=== PATIENT | female | born 2000 | race Caucasian/White ===

== ENCOUNTER 2023-10-23 01:41 | Inpatient (IN) | payer MEDICAID, OTHER ==
[~2023-10-23] VITALS: Ht 149.9 cm; Wt 55.9 kg
[2023-10-23 03:03] LABS: ALCOHOL, URINE DRUG SCREEN NEGATIVE (NEGATIVE); AMPHET/METH SCREEN,URINE NEGATIVE (NEGATIVE); BARBITURATE SCREEN, URINE NEGATIVE (NEGATIVE); BENZODIAZEPINES SCREEN,URINE NEGATIVE (NEGATIVE); CANNABINOID SCREEN,URINE POSITIVE (NEGATIVE); COCAINE SCREEN,URINE POSITIVE (NEGATIVE); METHADONE SCREEN, URINE NEGATIVE (NEGATIVE); OPIATE SCREEN,URINE NEGATIVE (NEGATIVE); PHENCYCLIDINE SCREEN,URINE NEGATIVE (NEGATIVE)
[2023-10-23 04:28] LABS: BASOPHILS % (AUTO) 0.5 % (0.0-2.0); EOSINOPHILS % (AUTO) 0.9 % (1.0-6.0); HEMATOCRIT 40.8 % (36-46); LYMPHOCYTES # (AUTO) 1.5 K/uL (1.0-4.8); LYMPHOCYTES % (AUTO) 18.9 % (22.0-44.0); MEAN CORPUSCULAR HEMOGLOBIN 33.2 pg (26.0-34.0); MEAN CORPUSCULAR HGB CONC 34.3 G/dL (31.0-37.0); MEAN CORPUSCULAR VOLUME 97 fL (80-100); MONOCYTES # (AUTO) 0.6 K/uL (0.1-1.0); MONOCYTES % (AUTO) 8.2 % (2.0-9.0); NEUTROPHILS # (AUTO) 5.5 K/uL (1.8-7.7); NEUTROPHILS % (AUTO) 71.5 % (40.0-70.0); PLATELET COUNT (AUTO) 207 K/uL (150-450); RED BLOOD CELL COUNT(AUTO) 4.22 MIL/uL (4.00-5.20); RED CELL DISTRIBUTION WIDTH 13.2 % (11.5-14.5); WHITE BLOOD COUNT (AUTO) 7.7 K/uL (4.5-11.0)
[2023-10-23 04:31] LABS: ANION GAP 13 mmol/L (8-16); CALCIUM, TOTAL 9.4 mg/dL (8.8-10.5); CARBON DIOXIDE 25 mmol/L (22-29); CHLORIDE 101 mmol/L (98-107); CREATININE 0.77 mg/dL (0.60-1.30); GLOMERULAR FILTR. RATE CALC > 60 mL/min (>60); GLUCOSE,RANDOM 107 mg/dL (70-110); POTASSIUM 3.2 mmol/L (3.5-5.1); SODIUM SERUM 139 mmol/L (136-145); UREA NITROGEN, BLOOD 8 mg/dL (7-18)
[2023-10-23 04:34] LABS: ALCOHOL, BLOOD (SERUM) < 3 mg/dL (0-10)
[2023-10-23] MEDS: DiphenhydrAMINE HCL 25 MG CAPSULE PO ONE (04:45)
[2023-10-23] MEDS: LORazepam 2 MG TABLET PO ONE (04:45)
[2023-10-23] MEDS: POTASSIUM CHLORIDE 20 MEQ ER TABLET PO ONE (04:46)
[2023-10-23] MEDS: HALOPERIDOL 5 MG TABLET PO PRN (13:21)
[2023-10-23] MEDS: LORazepam 2 MG TABLET PO PRN (13:21)
[2023-10-24] VITALS (14 sets, daily range): BP systolic 99–116; BP diastolic 55–72; PULSE 68–88; RESP 16–18; TEMP 97.6–98.9; O2SAT 97–99
[2023-10-24 06:25] LABS: GLUCOMETER DEV NAME(LOC) BV3S.; GLUCOSE,POINT OF CARE 95 MG/DL (70-110)
[2023-10-24 07:51] LABS: GLUCOMETER DEV NAME(LOC) POC.BV; POC SARS-COV2 AG, FIA NEGATIVE (NEGATIVE)
[2023-10-24] MEDS ORDERED: MAG HYDROX/ALUMINUM HYD/SIMETH ES 30 ML SUSPENSION UDCUP PO PRN (11:30)
[2023-10-24] MEDS ORDERED: MAGNESIUM HYDROXIDE SUSPENSION 30 ML UDCUP PO PRN (11:30)
[2023-10-24] MEDS ORDERED: BACITRACIN 28 GM OINTMENT TP PRN (11:30)
[2023-10-24] MEDS ORDERED: CloNIDine HCL 0.1 MG TABLET PO PRN (11:30)
[2023-10-24] MEDS ORDERED: OMEPRAZOLE 20 MG CAPSULE PO PRN (11:30)
[2023-10-24] MEDS ORDERED: ONDANSETRON HCL 4 MG TABLET PO PRN (11:30)
[2023-10-24] MEDS ORDERED: DOCUSATE SODIUM 100 MG CAPSULE PO PRN (11:30)
[2023-10-24] MEDS ORDERED: BENZOCAINE/MENTHOL LOZENGE PO PRN (11:30)
[2023-10-24] MEDS ORDERED: PETROLATUM,WHITE 28 GM JELLY TP PRN (11:30)
[2023-10-24] MEDS ORDERED: LOPERAMIDE HCL 2 MG CAPSULE PO PRN (11:30)
[2023-10-24] MEDS: IBUPROFEN 600 MG TABLET PO PRN (12:46)
[2023-10-24] MEDS: ACETAMINOPHEN 325 MG TABLET PO PRN (16:17)
[2023-10-24] MEDS: NICOTINE POLACRILEX 2 MG LOZENGE PO PRN (20:34)
[2023-10-24] MEDS: ALBUTEROL SULFATE HFA 90 MCG/PUFF 8 GM INHALER IH PRN (21:41)
[2023-10-25 07:59] LABS: ANION GAP 8 mmol/L (8-16); CALCIUM, TOTAL 9.2 mg/dL (8.8-10.5); CARBON DIOXIDE 27 mmol/L (22-29); CHLORIDE 103 mmol/L (98-107); CHOL/HDL RATIO 2.1 (3.9-5.7); CHOLESTEROL 100 mg/dL (131-200); CREATININE 0.59 mg/dL (0.60-1.30); GLOMERULAR FILTR. RATE CALC > 60 mL/min (>60); GLUCOSE,RANDOM 92 mg/dL (70-110); HDL CHOLESTEROL 47 mg/dL (40-60); LDL CHOL (CALC.) 45 mg/dL (0-130); POTASSIUM 3.3 mmol/L (3.5-5.1); SODIUM SERUM 138 mmol/L (136-145); THYROID STIMULATING HORMONE 2.05 uIU/mL (0.36-3.74); TRIGLYCERIDES 39 mg/dL (15-150); UREA NITROGEN, BLOOD 8 mg/dL (7-18)
[2023-10-25 08:39] VITALS: RESP 16
[2023-10-25 12:19] VITALS: BP 112/62; PULSE 72; RESP 17; TEMP 97.3; O2SAT 99
[2023-10-25 15:57] VITALS: RESP 18
[2023-10-25 16:57] VITALS: RESP 18
[2023-10-25 17:57] VITALS: RESP 17
[2023-10-25 20:10] VITALS: BP 135/59; PULSE 80; RESP 16; TEMP 97.3; O2SAT 98
[2023-10-26 02:59] VITALS: RESP 17
[2023-10-26] MEDS: ZOLPIDEM TARTRATE 10 MG TABLET PO PRN (03:00)
[2023-10-26 09:00] VITALS: BP 100/65; PULSE 104; RESP 16; TEMP 97.3; O2SAT 96
[2023-10-26] MEDS: RisperiDONE 1 MG TABLET PO SCH (16:00)
[2023-10-26] MEDS: DIVALPROEX SODIUM 500 MG DR TABLET PO SCH (16:00)
[2023-10-26] MEDS: MICONAZOLE NITRATE 2% 45 GM VAGINAL CREAM VG SCH (20:19)
[2023-10-26 23:49] VITALS: BP 111/74; PULSE 89; RESP 17; TEMP 97.8
[2023-10-27 06:04] VITALS: RESP 17
[2023-10-27 09:25] LABS: APPEARANCE,URINE CLEAR (CLEAR); BILIRUBIN,URINE NEGATIVE (NEGATIVE); COLOR,URINE COLORLESS (YELLOW); GLUCOSE, URINE (UA) NEGATIVE (NEGATIVE); KETONES,URINE NEGATIVE (NEGATIVE); LEUKOCYTE ESTERASE ,URINE NEGATIVE (NEGATIVE); NITRATE,URINE NEGATIVE (NEGATIVE); OCCULT BLOOD,URINE NEGATIVE (NEGATIVE); PROTEIN,URINE NEGATIVE (NEGATIVE); SPECIFIC GRAVITIY, URINE 1.005 (1.003-1.030); UROBILINOGEN,URINE <=1.0 mg/dL (<=1.0)
[2023-10-27 09:31] LABS: ALCOHOL, URINE DRUG SCREEN NEGATIVE (NEGATIVE); AMPHET/METH SCREEN,URINE NEGATIVE (NEGATIVE); BARBITURATE SCREEN, URINE NEGATIVE (NEGATIVE); BENZODIAZEPINES SCREEN,URINE NEGATIVE (NEGATIVE); CANNABINOID SCREEN,URINE POSITIVE (NEGATIVE); COCAINE SCREEN,URINE NEGATIVE (NEGATIVE); METHADONE SCREEN, URINE NEGATIVE (NEGATIVE); OPIATE SCREEN,URINE NEGATIVE (NEGATIVE); PHENCYCLIDINE SCREEN,URINE NEGATIVE (NEGATIVE)
[2023-10-27 09:32] VITALS: BP 106/63; PULSE 91; RESP 16; TEMP 97.8; O2SAT 96
[2023-10-27] MEDS ORDERED: DIVA-112 PO (12:49)
[2023-10-27] MEDS ORDERED: RISP-31 PO (12:49)
[2023-10-27] MEDS ORDERED: MICO45CR44 VG (13:05)
== END 2023-10-27 20:16 | disposition home or self-care (01) | DRG 753 ==
LOC: EMS 01:42 → B3A 23:10
PROVIDERS: ADMIT Psychiatry & Neurology Psychiatry; ATTEND Psychiatry & Neurology Psychiatry
DX: F31.30 Bipolar disorder, current episode depressed, mild or moderate severity, unspecified (principal); E11.9 Type 2 diabetes mellitus without complications; R45.851 Suicidal ideations; F14.10 Cocaine abuse, uncomplicated; Z20.822 Contact with and (suspected) exposure to COVID-19; E87.6 Hypokalemia; F19.10 Other psychoactive substance abuse, uncomplicated; G40.909 Epilepsy, unspecified, not intractable, without status epilepticus; K59.00 Constipation, unspecified; G47.00 Insomnia, unspecified; F41.9 Anxiety disorder, unspecified
CPT/HCPCS: 80048; 80061; 80307; 81003; 82962; 84443; 84703; 85025; 99285; G0480; J3535